=== PATIENT | male | born 1985 | race Caucasian/White ===

== ENCOUNTER 2018-08-23 10:36 | Outpatient (REF) | payer MEDICAID, SELFPAY ==
[2018-08-23 21:47] LABS: Abs Immature Grans 0.02 k/cumm (0.0-0.09); HCT 48.1 % (40.0-50.0); Mean Corp. HGB Concentration 33.3 g/dL (32.0-36.0); Mean Corpuscular Hemoglobin 30.3 pg (27.0-33.0); Mean Corpuscular Volume 91.1 fL (80-95); Mean Platelet Volume 11.6 fL (8.0-11.0); Platelet Count 124 x1000/uL (130-400); RBC 5.28 m/cumm (4.50-6.00); RBC Distribution Width 12.6 % (11.8-14.1)
[2018-08-23 22:00] LABS: Mono Screening POSITIVE (Negative)
[2018-08-23 22:21] LABS: ALT 192 U/L (12-78); AST 85 U/L (15-37); Albumin 4.1 g/dL (3.4-5.0); Alkaline Phosphatase 87 U/L (46-116); Anion Gap 8.6 mmol/L (3-11); BUN 14 mg/dL (7-18); Bilirubin, Total 0.4 mg/dL (0.2-1.0); CO2 31.4 mmol/L (21.0-32.0); CREATININE 0.89 mg/dL (0.70-1.30); Calcium 9.1 mg/dL (8.5-10.1); Chloride 103 mmol/L (98-107); Glucose 83 mg/dL (70-100); Potassium 4.2 mmol/L (3.5-5.1); Sodium 143 mmol/L (136-145); Total Protein 7.8 g/dL (6.4-8.2)
[2018-08-23 23:18] LABS: Absolute Lymphocyte Count 3.04 k/cumm (1.2-3.4); Absolute Neutrophil Count 2.67 k/cumm (1.2-6.7); Atypical Lymphocytes % 10
[2018-08-23 23:19] LABS: Diff Comment Manual Differential; Other Cells 0; Promyelocytes % 0 %; RBC Morphology Normal
[2018-08-27 11:38] LABS: CMV Ab, IgM Negative (Negative)
== END 2018-08-23 10:56 ==
LOC: NCHCN 10:36
PROVIDERS: PCP Family Medicine; Visit Provider Nurse Practitioner Family
DX: R50.9 Fever, unspecified (principal)
CPT/HCPCS: 80053; 85025; 86308; 86644; 86645

== ENCOUNTER 2020-07-21 20:02 | Outpatient (REF) | payer OTHER, SELFPAY ==
[2020-07-21 20:47] LABS: ALT 33 U/L (16-63); AST 18 U/L (15-37); Alkaline Phosphatase 55 U/L (46-116); Anion Gap 5.9 mmol/L (3-11); BUN 14 mg/dL (7-18); Bilirubin, Total 0.4 mg/dL (0.2-1.0); CO2 32.1 mmol/L (21.0-32.0); CREATININE 0.9 mg/dL (0.70-1.30); Calcium 8.9 mg/dL (8.5-10.1); Calculated LDL 121 mg/dL (<100); Chloride 104 mmol/L (98-107); Cholesterol 194 mg/dL (<200); Glucose 58 mg/dL (74-106); HDL Cholesterol 52 mg/dL (40-60); Potassium 3.9 mmol/L (3.5-5.1); Sodium 142 mmol/L (136-145); Triglyceride 108 mg/dL (<150)
== END 2020-07-21 20:03 | disposition home or self-care (01) ==
LOC: NCHCN 20:02
PROVIDERS: PCP Family Medicine; Visit Provider Family Medicine
DX: Z00.00 Encounter for general adult medical examination without abnormal findings (principal); R74.8 Abnormal levels of other serum enzymes; L21.9 Seborrheic dermatitis, unspecified; Z13.220 Encounter for screening for lipoid disorders
CPT/HCPCS: 80053; 80061

== ENCOUNTER 2021-07-07 17:36 | Outpatient (REF) | payer OTHER, SELFPAY ==
[2021-07-07 20:46] LABS: Abs Immature Grans 0.01 10^3/uL (0.0-0.06); Absolute Basophil Count 0.04 10^3/uL (0.0-0.2); Absolute Eosinophil Count 0.23 10^3/uL (0.0-0.7); Absolute Lymphocyte Count 2.36 10^3/uL (1.2-3.4); Absolute Monocyte Count 0.72 10^3/uL (0.1-0.8); Absolute Neutrophil Count 3.82 10^3/uL (1.2-6.7); Basophils % 0.6; ESR 5 mm/hr (0-15); Eosinophils % 3.2; HCT 48.3 % (40.0-50.0); HGB 15.9 g/dL (13.5-17.5); Immature Grans % 0.1; Lymphocytes % 32.9; MCH 29.8 pg (27.0-33.0); MCHC 32.9 % (32.0-36.0); MCV 90.4 fL (80-95); MPV 10.9 fL (8.0-11.0); Neutrophils % 53.2; Nucleated RBC 0 %; Platelet Count 206 10^3/uL (130-400); RBC 5.34 10^6/uL (4.36-5.78); RDW 11.6 % (11.8-14.1); RDW-SD 38.5 fL; WBC 7.18 10^3/uL (4.4-10.8)
[2021-07-07 21:09] LABS: ALT 32 U/L (16-63); AST 24 U/L (15-37); Albumin 4.3 g/dL (3.4-5.0); Alkaline Phosphatase 63 U/L (46-116); Anion Gap 5.3 mmol/L (3-11); BUN 13 mg/dL (7-18); Bilirubin, Total 0.2 mg/dL (0.2-1.0); CO2 29.7 mmol/L (21.0-32.0); CREATININE 0.8 mg/dL (0.70-1.30); Calcium 9.2 mg/dL (8.5-10.1); Chloride 103 mmol/L (98-107); Glucose 100 mg/dL (74-106); Potassium 4.6 mmol/L (3.5-5.1); Sodium 138 mmol/L (136-145); Total Protein 7.6 g/dL (6.4-8.2)
== END 2021-07-07 17:37 | disposition home or self-care (01) ==
LOC: NCHCN 17:36
PROVIDERS: PCP Family Medicine; Visit Provider Registered Nurse
DX: R19.7 Diarrhea, unspecified (principal)
CPT/HCPCS: 80053; 85652; 85025

== ENCOUNTER 2021-07-08 13:51 | Outpatient (REF) | payer OTHER, SELFPAY ==
[2021-07-10 23:26] LABS: Campylobacter PCR Negative (Negative); Salmonella PCR Negative (Negative); Shiga Toxin PCR Negative (Negative); Shigella/Enteroinvasive Ecoli Negative (Negative)
== END 2021-07-08 13:52 | disposition home or self-care (01) ==
LOC: NCHCN 13:51
PROVIDERS: PCP Family Medicine; Visit Provider Registered Nurse
DX: K92.1 Melena (principal); K59.09 Other constipation; R19.7 Diarrhea, unspecified; Z83.79 Family history of other diseases of the digestive system
CPT/HCPCS: 87329; 87493; 87505; 83630; 87177

== ENCOUNTER 2023-07-11 02:11 | Outpatient (RCR) | payer BC, SELFPAY ==
[2023-06-27] MEDS: Normal Saline Flush 10 ML SYR IVP (13:39)
[2023-06-27] MEDS: VEDOLIZUMAB 300 MG in Normal Saline 250 ML 500 MG IVPB (13:39)
[2023-06-27 14:07] LABS: HCT 46.6 % (40.0-50.0); HGB 15.4 g/dL (13.5-17.5); MCH 30.1 pg (27.0-33.0); MCV 91 fL (80-95); Platelet Count 261 10^3/uL (130-400); RBC 5.11 10^6/uL (4.36-5.78); WBC 8.68 10^3/uL (4.4-10.8)
[2023-06-27 14:22] LABS: ALT 51 U/L (16-63); AST 15 U/L (15-37); Albumin 3.8 g/dL (3.4-5.0); Alkaline Phosphatase 52 U/L (46-116); Anion Gap 5.6 mmol/L (3-11); BUN 14 mg/dL (7-18); Bilirubin, Total 0.5 mg/dL (0.2-1.0); CO2 31.4 mmol/L (21.0-32.0); CREATININE 0.9 mg/dL (0.70-1.30); Calcium 9.6 mg/dL (8.5-10.1); Chloride 103 mmol/L (98-107); Estimated GFR 110.73 (mL/min/1.73m2); Glucose 142 mg/dL (74-106); Potassium 4.2 mmol/L (3.5-5.1); Sodium 140 mmol/L (136-145); Total Protein 7.8 g/dL (6.4-8.2)
[2023-07-11] MEDS: VEDOLIZUMAB 300 MG in Normal Saline 250 ML 500 MG IVPB (13:39)
[2023-07-11] MEDS: Normal Saline Flush 10 ML SYR IVP (13:40)
== END 2023-07-18 23:59 | disposition home or self-care (01) ==
LOC: INF 02:11
PROVIDERS: PCP Family Medicine; Visit Provider Internal Medicine
DX: K51.011 Ulcerative (chronic) pancolitis with rectal bleeding (principal)
CPT/HCPCS: 36415; 80053; 85027; 96365; 86140; J3380

== ENCOUNTER 2023-08-06 04:46 | Outpatient (RCR) | payer BC, SELFPAY ==
[2023-08-06] MEDS: VEDOLIZUMAB 300 MG in Normal Saline 250 ML 500 MG IVPB (12:51)
[2023-08-06] MEDS: Normal Saline Flush 10 ML SYR IVP (12:51)
== END 2023-08-16 23:59 | disposition home or self-care (01) ==
LOC: INF 04:46
PROVIDERS: PCP Family Medicine; Visit Provider Internal Medicine
DX: K51.011 Ulcerative (chronic) pancolitis with rectal bleeding (principal)
CPT/HCPCS: 96365; J3380

== ENCOUNTER 2023-10-03 04:13 | Outpatient (RCR) | payer BC, SELFPAY ==
[2023-10-03 13:05] LABS: HCT 44.5 % (40.0-50.0); HGB 15.3 g/dL (13.5-17.5); MCH 30.2 pg (27.0-33.0); MCHC 34.4 % (32.0-36.0); MCV 88 fL (80-95); MPV 10.5 fL (8.0-11.0); Platelet Count 217 10^3/uL (130-400); RBC 5.06 10^6/uL (4.36-5.78); RDW 11.9 % (11.8-14.1); RDW-SD 38.5 fL; WBC 7.76 10^3/uL (4.4-10.8)
[2023-10-03] MEDS: Normal Saline Flush 10 ML SYR IVP (13:23)
[2023-10-03] MEDS: VEDOLIZUMAB 300 MG in Normal Saline 250 ML 500 MG IVPB (13:23)
[2023-10-03 13:29] LABS: ALT 27 U/L (16-63); AST 17 U/L (15-37); Albumin 3.6 g/dL (3.4-5.0); Alkaline Phosphatase 62 U/L (46-116); Anion Gap 7.4 mmol/L (3-11); BUN 14 mg/dL (7-18); Bilirubin, Total 0.3 mg/dL (0.2-1.0); C-Reactive Protein < 0.50 mg/dL (<or=0.5); CO2 28.6 mmol/L (21.0-32.0); CREATININE 0.7 mg/dL (0.70-1.30); Chloride 107 mmol/L (98-107); Estimated GFR 119.46 (mL/min/1.73m2); Glucose 75 mg/dL (74-106); Potassium 3.2 mmol/L (3.5-5.1); Sodium 143 mmol/L (136-145); Total Protein 6.9 g/dL (6.4-8.2)
== END 2023-10-16 23:59 | disposition home or self-care (01) ==
LOC: INF 04:13
PROVIDERS: PCP Family Medicine; Visit Provider Internal Medicine
DX: K51.011 Ulcerative (chronic) pancolitis with rectal bleeding (principal)
CPT/HCPCS: 36415; 80053; 85027; 96365; 86140; J3380

== ENCOUNTER 2023-11-28 01:00 | Outpatient (RCR) | payer BC, SELFPAY ==
[2023-11-28] MEDS: Normal Saline Flush 10 ML SYR IVP (13:11)
[2023-11-28] MEDS: VEDOLIZUMAB 300 MG in Normal Saline 250 ML 500 MG IVPB (13:11)
== END 2023-12-16 23:59 | disposition home or self-care (01) ==
LOC: INF 01:00
PROVIDERS: PCP Family Medicine; Visit Provider Internal Medicine
DX: K51.011 Ulcerative (chronic) pancolitis with rectal bleeding (principal)
CPT/HCPCS: 96365; J3380

== ENCOUNTER 2024-01-25 00:53 | Outpatient (RCR) | payer BC, SELFPAY ==
[2024-01-25 14:08] LABS: HCT 46.9 % (40.0-50.0); MCH 30.8 pg (27.0-33.0); MCHC 34.1 % (32.0-36.0); MCV 90 fL (80-95); MPV 10.3 fL (8.0-11.0); Platelet Count 187 10^3/uL (130-400); RBC 5.19 10^6/uL (4.36-5.78); RDW 11.9 % (11.8-14.1); RDW-SD 39.5 fL; WBC 7.49 10^3/uL (4.4-10.8)
[2024-01-25] MEDS: Normal Saline Flush 10 ML SYR IVP (14:22)
[2024-01-25] MEDS: VEDOLIZUMAB 300 MG in Normal Saline 250 ML 500 MG IVPB (14:22)
[2024-01-25 14:27] LABS: ALT 30 U/L (16-63); AST 17 U/L (15-37); Alkaline Phosphatase 59 U/L (46-116); Anion Gap 3.9 mmol/L (3-11); BUN 16 mg/dL (7-18); Bilirubin, Total 0.33 mg/dL (0.2-1.0); C-Reactive Protein < 0.50 mg/dL (<or=0.5); CO2 35.1 mmol/L (21.0-32.0); CREATININE 0.8 mg/dL (0.70-1.30); Calcium 9.1 mg/dL (8.5-10.1); Chloride 103 mmol/L (98-107); Estimated GFR 114.74 (mL/min/1.73m2); Glucose 65 mg/dL (74-106); Potassium 4.1 mmol/L (3.5-5.1); Sodium 142 mmol/L (136-145); Total Protein 7.4 g/dL (6.4-8.2)
== END 2024-02-16 23:59 | disposition home or self-care (01) ==
LOC: INF 00:53
PROVIDERS: Internal Medicine Gastroenterology; PCP Family Medicine; Visit Provider Internal Medicine
DX: K51.011 Ulcerative (chronic) pancolitis with rectal bleeding (principal)
CPT/HCPCS: 36415; 80053; 85027; 96365; 86140; J3380

== ENCOUNTER 2024-03-21 01:31 | Outpatient (RCR) | payer BC, SELFPAY ==
[2024-03-21] MEDS: VEDOLIZUMAB 300 MG in Normal Saline 250 ML 500 MG IVPB (13:44)
[2024-03-21] MEDS: Normal Saline Flush 10 ML SYR IVP (14:23)
== END 2024-04-17 23:59 | disposition home or self-care (01) ==
LOC: INF 01:31
PROVIDERS: PCP Family Medicine; Visit Provider Internal Medicine
DX: K51.011 Ulcerative (chronic) pancolitis with rectal bleeding (principal)
CPT/HCPCS: 96365; J3380

== ENCOUNTER 2024-05-16 01:10 | Outpatient (RCR) | payer BC, SELFPAY ==
[2024-05-16 13:06] LABS: HCT 46.8 % (40.0-50.0); HGB 15.9 g/dL (13.5-17.5); MCH 30.6 pg (27.0-33.0); MCV 90 fL (80-95); MPV 9.9 fL (8.0-11.0); Platelet Count 183 10^3/uL (130-400); RBC 5.19 10^6/uL (4.36-5.78); RDW 11.6 % (11.8-14.1); RDW-SD 38.4 fL; WBC 7.19 10^3/uL (4.4-10.8)
[2024-05-16] MEDS: VEDOLIZUMAB 300 MG in Normal Saline 250 ML 500 MG IVPB (13:24)
[2024-05-16 13:26] LABS: ALT 35 U/L (16-63); AST 18 U/L (15-37); Alkaline Phosphatase 64 U/L (46-116); Anion Gap 6.3 mmol/L (3-11); BUN 16 mg/dL (7-18); Bilirubin, Total 0.22 mg/dL (0.2-1.0); CO2 31.7 mmol/L (21.0-32.0); Calcium 8.6 mg/dL (8.5-10.1); Chloride 105 mmol/L (98-107); Estimated GFR 97.58 (mL/min/1.73m2); Glucose 87 mg/dL (74-106); Potassium 3.8 mmol/L (3.5-5.1); Sodium 143 mmol/L (136-145); Total Protein 7.4 g/dL (6.4-8.2)
[2024-05-16] MEDS: Normal Saline Flush 10 ML SYR IVP (13:27)
[2024-05-16 13:32] LABS: C-Reactive Protein < 0.50 mg/dL (<or=0.5)
== END 2024-05-17 23:59 | disposition home or self-care (01) ==
LOC: INF 01:10
PROVIDERS: Family Medicine; PCP Family Medicine; Visit Provider Internal Medicine
DX: K51.011 Ulcerative (chronic) pancolitis with rectal bleeding (principal)
CPT/HCPCS: 36415; 80053; 85027; 96365; 86140; J3380

== ENCOUNTER 2024-07-09 01:41 | Outpatient (RCR) | payer BC, SELFPAY ==
[2024-07-09] MEDS: Normal Saline Flush 10 ML SYR IVP (13:25)
[2024-07-09] MEDS: VEDOLIZUMAB 300 MG in Normal Saline 250 ML 500 MG IVPB (13:25)
== END 2024-07-18 23:59 | disposition home or self-care (01) ==
LOC: INF 01:41
PROVIDERS: PCP Family Medicine; Visit Provider Internal Medicine
DX: K51.011 Ulcerative (chronic) pancolitis with rectal bleeding (principal)
CPT/HCPCS: 96365; J3380

== ENCOUNTER 2024-09-03 02:43 | Outpatient (RCR) | payer BC, SELFPAY ==
[2024-09-03 13:21] LABS: HCT 45.7 % (40.0-50.0); HGB 15.5 g/dL (13.5-17.5); MCH 30.9 pg (27.0-33.0); MCHC 33.9 % (32.0-36.0); MCV 91 fL (80-95); MPV 10.4 fL (8.0-11.0); Platelet Count 179 10^3/uL (130-400); RBC 5.02 10^6/uL (4.36-5.78); RDW 11.9 % (11.8-14.1); RDW-SD 39.7 fL; WBC 8.31 10^3/uL (4.4-10.8)
[2024-09-03] MEDS: VEDOLIZUMAB 300 MG in Normal Saline 250 ML 500 MG IVPB (13:24)
[2024-09-03] MEDS: Normal Saline Flush 5 ML SYR IVP (13:24)
[2024-09-03 13:39] LABS: ALT 33 U/L (16-63); AST 19 U/L (15-37); Alkaline Phosphatase 62 U/L (46-116); Anion Gap 7.4 mmol/L (3-11); BUN 19 mg/dL (7-18); Bilirubin, Total 0.6 mg/dL (0.2-1.0); CO2 30.6 mmol/L (21.0-32.0); CREATININE 0.9 mg/dL (0.70-1.30); Calcium 9.1 mg/dL (8.5-10.1); Chloride 105 mmol/L (98-107); Estimated GFR 110.04 (mL/min/1.73m2); Glucose 113 mg/dL (74-106); Potassium 3.7 mmol/L (3.5-5.1); Sodium 143 mmol/L (136-145); Total Protein 7.4 g/dL (6.4-8.2)
[2024-09-03 13:40] LABS: C-Reactive Protein < 0.50 mg/dL (<or=0.5)
== END 2024-09-15 23:59 | disposition home or self-care (01) ==
LOC: INF 02:43
PROVIDERS: Internal Medicine; PCP Family Medicine; Visit Provider Internal Medicine
DX: K51.011 Ulcerative (chronic) pancolitis with rectal bleeding (principal)
CPT/HCPCS: 80053; 85027; 96365; 86140; J3380

== ENCOUNTER 2024-10-29 02:27 | Outpatient (RCR) | payer BC, SELFPAY ==
[2024-10-29] MEDS: VEDOLIZUMAB 300 MG in Normal Saline 250 ML 500 MG IVPB (13:25)
[2024-10-29] MEDS: Normal Saline Flush 10 ML SYR IVP (13:25)
== END 2024-11-15 23:59 | disposition home or self-care (01) ==
LOC: INF 02:27
PROVIDERS: PCP Family Medicine; Visit Provider Internal Medicine
DX: K51.011 Ulcerative (chronic) pancolitis with rectal bleeding (principal)
CPT/HCPCS: 96365; J3380

== ENCOUNTER 2024-12-25 01:46 | Outpatient (RCR) | payer BC, SELFPAY ==
[2024-12-25 12:32] LABS: HCT 44.8 % (40.0-50.0); HGB 15.4 g/dL (13.5-17.5); MCH 30.7 pg (27.0-33.0); MCHC 34.4 % (32.0-36.0); MCV 89 fL (80-95); MPV 10.4 fL (8.0-11.0); Platelet Count 163 10^3/uL (130-400); RBC 5.02 10^6/uL (4.36-5.78); RDW 11.7 % (11.8-14.1); RDW-SD 37.9 fL; WBC 6.53 10^3/uL (4.4-10.8)
[2024-12-25 12:55] LABS: ALT 25 U/L (16-63); AST 16 U/L (15-37); Albumin 3.9 g/dL (3.4-5.0); Alkaline Phosphatase 59 U/L (46-116); Anion Gap 7.5 mmol/L (3-11); BUN 16 mg/dL (7-18); Bilirubin, Total 0.3 mg/dL (0.2-1.0); CO2 28.5 mmol/L (21.0-32.0); Calcium 8.6 mg/dL (8.5-10.1); Chloride 105 mmol/L (98-107); Estimated GFR 118.72 (mL/min/1.73m2); Glucose 135 mg/dL (74-106); Potassium 3.9 mmol/L (3.5-5.1); Sodium 141 mmol/L (136-145); Total Protein 7.1 g/dL (6.4-8.2)
[2024-12-25 12:58] LABS: C-Reactive Protein < 0.50 mg/dL (<or=0.5)
[2024-12-25] MEDS: Normal Saline Flush 10 ML SYR IVP (13:10)
[2024-12-25] MEDS: VEDOLIZUMAB 300 MG in Normal Saline 250 ML 500 MG IVPB (13:12)
== END 2025-01-15 23:59 | disposition home or self-care (01) ==
LOC: INF 01:46
PROVIDERS: Internal Medicine; PCP Family Medicine; Visit Provider Internal Medicine
DX: K51.011 Ulcerative (chronic) pancolitis with rectal bleeding
CPT/HCPCS: 36415; 80053; 85027; 96365; 86140; J3380

== ENCOUNTER 2025-02-18 03:00 | Outpatient (CLI) | payer BC, SELFPAY ==
[2025-02-18] MEDS: VEDOLIZUMAB 300 MG in Normal Saline 250 ML 500 MG IVPB (12:08)
[2025-02-18] MEDS: Normal Saline Flush 10 ML SYR IVP (12:09)
== END 2025-02-18 03:01 | disposition home or self-care (01) ==
LOC: INF 03:00
PROVIDERS: PCP Family Medicine; Visit Provider Internal Medicine
DX: K51.011 Ulcerative (chronic) pancolitis with rectal bleeding (principal)
CPT/HCPCS: 96365; J3380

== ENCOUNTER 2025-04-16 00:07 | Outpatient (CLI) | payer BC, SELFPAY ==
[2025-04-16 12:08] LABS: HCT 44.0 % (40.0-50.0); HGB 14.7 g/dL (13.5-17.5); MCH 30.4 pg (27.0-33.0); MCHC 33.4 % (32.0-36.0); MCV 91 fL (80-95); MPV 10.2 fL (8.0-11.0); Platelet Count 173 10^3/uL (130-400); RBC 4.83 10^6/uL (4.36-5.78); RDW 11.8 % (11.8-14.1); RDW-SD 39.6 fL; WBC 6.11 10^3/uL (4.4-10.8)
[2025-04-16] MEDS: Normal Saline Flush 10 ML SYR IVP (12:21)
[2025-04-16] MEDS: VEDOLIZUMAB 300 MG in Normal Saline 250 ML 500 MG IVPB (12:21)
[2025-04-16 12:25] LABS: ALT 27 U/L (16-63); AST 17 U/L (15-37); Albumin 3.9 g/dL (3.4-5.0); Alkaline Phosphatase 56 U/L (46-116); Anion Gap 4.5 mmol/L (3-11); BUN 17 mg/dL (7-18); Bilirubin, Total 0.4 mg/dL (0.2-1.0); CO2 32.5 mmol/L (21.0-32.0); Calcium 8.8 mg/dL (8.5-10.1); Chloride 104 mmol/L (98-107); Estimated GFR 110.04 (mL/min/1.73m2); Glucose 90 mg/dL (74-106); Potassium 4.4 mmol/L (3.5-5.1); Sodium 141 mmol/L (136-145); Total Protein 7.2 g/dL (6.4-8.2)
[2025-04-16 12:27] LABS: C-Reactive Protein < 0.50 mg/dL (<or=0.5)
== END 2025-04-16 00:08 | disposition home or self-care (01) ==
LOC: INF 00:07
PROVIDERS: PCP Family Medicine; Visit Provider Nurse Practitioner Family
DX: K51.011 Ulcerative (chronic) pancolitis with rectal bleeding (principal)
CPT/HCPCS: 36415; 36591; 80053; 85027; 96365; 86140; J3380

== ENCOUNTER 2025-06-15 00:39 | Outpatient (CLI) | payer BC, SELFPAY ==
[2025-06-15] MEDS: VEDOLIZUMAB 300 MG in Normal Saline 250 ML 500 MG IVPB (12:27)
== END 2025-06-15 00:40 | disposition home or self-care (01) ==
LOC: INF 00:39
PROVIDERS: PCP Family Medicine; Visit Provider Family Medicine
DX: K51.919 Ulcerative colitis, unspecified with unspecified complications (principal)
CPT/HCPCS: 96365; J3380